=== PATIENT | male | born 1965 | race Asian ===

== ENCOUNTER 2020-06-18 12:14 | Emergency (ER) | payer SELFPAY ==
[~2020-06-18] VITALS: Ht 172.7 cm; Wt 77.1 kg
[2020-06-18 12:28] VITALS: BP 117/88
== END 2020-06-18 16:24 | disposition home or self-care (01) ==
LOC: ER 12:14
DX: J18.9 Pneumonia, unspecified organism (principal); Z20.828 Contact with and (suspected) exposure to other viral communicable diseases
CPT/HCPCS: 36415; 71045; 87426

== ENCOUNTER 2020-06-20 18:31 | Emergency (ER) | payer SELFPAY ==
[~2020-06-20] VITALS: Ht 172.7 cm; Wt 77.1 kg
[2020-06-20 18:32] VITALS: BP 164/113
== END 2020-06-20 23:00 | disposition home or self-care (01) ==
LOC: ER 18:32
DX: R06.02 Shortness of breath (principal); Z20.828 Contact with and (suspected) exposure to other viral communicable diseases
CPT/HCPCS: 36415; 71045; 87426

== ENCOUNTER 2021-04-10 20:33 | Emergency (ER) | payer MEDICAID, OTHER ==
[~2021-04-10] VITALS: Ht 175.3 cm; Wt 78.5 kg
[2021-04-10 20:37] VITALS: BP 145/118
[2021-04-10 21:42] LABS: Basophils # (auto) 0.1 10 ^3/uL (0-0.2); Basophils % (auto) 0.7 % (0.0-2.0); Eosinophils # (auto) 0.2 10 ^3/uL (0-0.8); Eosinophils % (auto) 2.5 % (0.0-7.0); Hemoglobin 18.6 g/dL (13.5-17.5); Lymphocytes % (auto) 23.3 % (10.0-50.0); Mean Corpuscular Hemoglobin 32.2 pg (28.0-32.0); Mean Corpuscular Hgb Conc. 33.1 g/dL (32.0-36.0); Mean Corpuscular Volume 97.5 fL (80.0-100.0); Monocytes # (auto) 0.7 10 ^3/uL (0-1.3); Monocytes % (auto) 7.9 % (0.0-12.0); Neutrophils # (auto) 5.7 10 ^3/uL (1.6-8.6); Neutrophils % (auto) 65.6 % (37.0-80.0); Nucleated Red Blood Cells % 0.1 %; Red Blood Cells 5.76 10^6/uL (4.5-5.90); Red Cell Distribution Width 14.1 % (11.8-14.3); White Blood Cell 8.7 10^3/uL (4.4-10.8)
[2021-04-10 21:44] LABS: Hematocrit 56.2 % (41.0-53.0)
[2021-04-10 22:27] LABS: Alanine Aminotransferase 186 U/L (16-61); Albumin 3.8 g/dL (3.4-5.0); Anion Gap 10 (5-15); Aspartate Aminotransferase 96 U/L (15-37); Blood Urea Nitrogen 20 mg/dL (7-18); Calcium 8.7 mg/dL (8.5-10.1); Carbon Dioxide 25 mmol/L (21-32); Chloride 106 mmol/L (98-107); GFR African American 78 mL/min; GFR Non-African American 64 mL/min; Glucose 95 mg/dL (74-106); Potassium 4.5 mmol/L (3.5-5.1); Sodium 141 mmol/L (136-145)
[2021-04-10 22:32] LABS: Alkaline Phosphatase 100 U/L (45-117); Bilirubin, Total 0.7 mg/dL (0.2-1.0); Total Protein 7.1 g/dL (6.4-8.2)
[2021-04-10] MEDS ORDERED: IOHEXOL 350 MG/ML 100ML IJ ONE (22:41)
== END 2021-04-11 02:31 | disposition left against medical advice (07) ==
LOC: ER 20:33
DX: R06.02 Shortness of breath (principal); I16.0 Hypertensive urgency; I11.0 Hypertensive heart disease with heart failure; I50.9 Heart failure, unspecified; Z87.891 Personal history of nicotine dependence
CPT/HCPCS: 36415; 71046; 71275; 80053; 83880; 84484; 85025; 85379; 93005; 99285; Q9967

== ENCOUNTER 2021-04-12 05:10 | Inpatient (IN) | payer MEDICAID ==
[~2021-04-12] VITALS: Ht 172.7 cm; Wt 78.5 kg
[2021-04-12 06:02] LABS: Basophils # (auto) 0.1 10 ^3/uL (0-0.2); Eosinophils # (auto) 0.2 10 ^3/uL (0-0.8); Mean Corpuscular Hgb Conc. 33.7 g/dL (32.0-36.0); Monocytes # (auto) 0.7 10 ^3/uL (0-1.3); White Blood Cell 9.1 10^3/uL (4.4-10.8)
[2021-04-12 06:03] LABS: Eosinophils % (auto) 2.5 % (0.0-7.0); Hematocrit 53.2 % (41.0-53.0); Hemoglobin 17.9 g/dL (13.5-17.5); Lymphocytes # (auto) 2.9 10 ^3/uL (0.4-5.4); Lymphocytes % (auto) 31.8 % (10.0-50.0); Mean Corpuscular Hemoglobin 32.2 pg (28.0-32.0); Mean Corpuscular Volume 95.6 fL (80.0-100.0); Neutrophils # (auto) 5.2 10 ^3/uL (1.6-8.6); Neutrophils % (auto) 56.7 % (37.0-80.0); Nucleated Red Blood Cells % 0.2 %; Red Blood Cells 5.57 10^6/uL (4.5-5.90); Red Cell Distribution Width 13.5 % (11.8-14.3)
[2021-04-12 06:17] LABS: INR 1.29 (0.9-1.15); Partial Thromboplastin Time 27.2 sec (23.6-33.0)
[2021-04-12 06:21] LABS: Alanine Aminotransferase 216 U/L (16-61); Albumin 3.8 g/dL (3.4-5.0); Anion Gap 6 (5-15); Aspartate Aminotransferase 90 U/L (15-37); BUN/Creatinine Ratio 15.4; Blood Urea Nitrogen 20 mg/dL (7-18); Calcium 8.6 mg/dL (8.5-10.1); Carbon Dioxide 25 mmol/L (21-32); Chloride 106 mmol/L (98-107); GFR African American 74 mL/min; GFR Non-African American 61 mL/min; Glucose 99 mg/dL (74-106); Lipase 337 U/L (73-393); Magnesium 2.4 mg/dL (1.6-2.6); Potassium 3.5 mmol/L (3.5-5.1); Sodium 137 mmol/L (136-145)
[2021-04-12 06:26] LABS: Alkaline Phosphatase 80 U/L (45-117); Total Protein 6.8 g/dL (6.4-8.2)
[2021-04-12] MEDS ORDERED: MORPHINE SULFATE 4 MG/ML SYR/VIAL IV PRN (12:30)
[2021-04-12] MEDS ORDERED: ONDANSETRON HCL 4 MG/2 ML VIAL IV PRN (12:30)
[2021-04-12] MEDS ORDERED: MORPHINE SULFATE INJECTION 2 MG/ML SYRG IV PRN ×2 (12:30)
[2021-04-12] MEDS ORDERED: NITROGLYCERIN 0.4 MG SL TAB SL PRN (12:30)
[2021-04-12] MEDS ORDERED: GASTROGRAFIN 30 ML SOL ONE (12:40)
[2021-04-12] MEDS ORDERED: OMNIPAQUE ORAL SOLN 500ml 12mg/ml PO ONE (12:41)
[2021-04-12 13:09] VITALS: BP 129/98
[2021-04-12] MEDS ORDERED: FUROSEMIDE 20 MG/2 ML VIAL IV SCH (18:00)
[2021-04-12] MEDS ORDERED: POTASSIUM CHL 10 Meq TABLET PO SCH (22:00)
== END 2021-04-12 13:30 | disposition left against medical advice (07) ==
LOC: ER 05:10 → TELE 12:29
PROVIDERS: ADMIT Hospitalist; ATTEND Hospitalist
DX: K81.9 Cholecystitis, unspecified (principal); I11.0 Hypertensive heart disease with heart failure; I50.9 Heart failure, unspecified; R16.0 Hepatomegaly, not elsewhere classified; R06.02 Shortness of breath; K82.9 Disease of gallbladder, unspecified; Z82.49 Family history of ischemic heart disease and other diseases of the circulatory system; Z87.891 Personal history of nicotine dependence
CPT/HCPCS: 36415; 71046; 76705; 80053; 83690; 83735; 83880; 84484; 85025; 85379; 85610; 85730; 93005; G0378

== ENCOUNTER 2021-04-14 00:13 | Emergency (ER) | payer MEDICAID ==
[~2021-04-14] VITALS: Ht 175.3 cm; Wt 77.1 kg
[2021-04-14 00:14] VITALS: BP 148/118
== END 2021-04-14 01:43 | disposition left against medical advice (07) ==
LOC: ER 00:13
DX: R06.02 Shortness of breath (principal); N32.89 Other specified disorders of bladder; I11.0 Hypertensive heart disease with heart failure; I50.9 Heart failure, unspecified; Z87.891 Personal history of nicotine dependence

== ENCOUNTER 2021-05-28 15:52 | Emergency (ER) | payer MEDICAID ==
[~2021-05-28] VITALS: Ht 172.7 cm; Wt 77.1 kg
[2021-05-28 16:34] LABS: Basophils # (auto) 0.1 10 ^3/uL (0-0.2); Eosinophils # (auto) 0.1 10 ^3/uL (0-0.8); Eosinophils % (auto) 1.2 % (0.0-7.0); Monocytes # (auto) 0.6 10 ^3/uL (0-1.3); Nucleated Red Blood Cells % 0.1 %
[2021-05-28 16:35] LABS: Basophils % (auto) 0.8 % (0.0-2.0); Hematocrit 55.4 % (41.0-53.0); Hemoglobin 18.2 g/dL (13.5-17.5); Lymphocytes # (auto) 2.1 10 ^3/uL (0.4-5.4); Lymphocytes % (auto) 22.4 % (10.0-50.0); Mean Corpuscular Hemoglobin 31.3 pg (28.0-32.0); Mean Corpuscular Hgb Conc. 32.8 g/dL (32.0-36.0); Mean Corpuscular Volume 95.4 fL (80.0-100.0); Monocytes % (auto) 6.2 % (0.0-12.0); Neutrophils # (auto) 6.5 10 ^3/uL (1.6-8.6); Neutrophils % (auto) 69.4 % (37.0-80.0); Red Blood Cells 5.81 10^6/uL (4.5-5.90); Red Cell Distribution Width 14.7 % (11.8-14.3); White Blood Cell 9.4 10^3/uL (4.4-10.8)
[2021-05-28 16:52] LABS: Albumin 3.1 g/dL (3.4-5.0); Calcium 8.4 mg/dL (8.5-10.1); Magnesium 2.8 mg/dL (1.6-2.6); Potassium 4.7 mmol/L (3.5-5.1)
[2021-05-28 17:00] LABS: BUN/Creatinine Ratio 21.2; Bilirubin, Total 1.2 mg/dL (0.2-1.0); Total Protein 6.2 g/dL (6.4-8.2)
[2021-05-28 23:05] LABS: Urine Bacteria NONE SEEN /hpf (None Seen); Urine Blood Negative /uL (Negative); Urine Mucus FEW (None Seen); Urine Sperm PRESENT /hpf (None Seen); Urine WBC 3 /hpf (0 - 3)
[2021-05-29 03:30] VITALS: BP 141/102
== END 2021-05-29 04:17 | disposition home or self-care (01) ==
LOC: ER 15:52
DX: R10.84 Generalized abdominal pain (principal); Z87.891 Personal history of nicotine dependence
CPT/HCPCS: 36415; 80053; 81001; 82150; 83690; 83735; 84484; 85025; 93005

== ENCOUNTER 2021-05-30 13:38 | Emergency (ER) | payer MEDICAID ==
[~2021-05-30] VITALS: Ht 172.7 cm; Wt 77.1 kg
[2021-05-30 14:31] LABS: Eosinophils # (auto) 0.1 10 ^3/uL (0-0.8); Eosinophils % (auto) 1.6 % (0.0-7.0); Lymphocytes # (auto) 1.7 10 ^3/uL (0.4-5.4); Monocytes # (auto) 0.4 10 ^3/uL (0-1.3); White Blood Cell 7.5 10^3/uL (4.4-10.8)
[2021-05-30 14:33] LABS: Basophils # (auto) 0.1 10 ^3/uL (0-0.2); Basophils % (auto) 0.8 % (0.0-2.0); Hemoglobin 18.8 g/dL (13.5-17.5); Lymphocytes % (auto) 23.3 % (10.0-50.0); Mean Corpuscular Hemoglobin 31.1 pg (28.0-32.0); Mean Corpuscular Hgb Conc. 32.5 g/dL (32.0-36.0); Mean Corpuscular Volume 95.8 fL (80.0-100.0); Monocytes % (auto) 5.7 % (0.0-12.0); Neutrophils # (auto) 5.1 10 ^3/uL (1.6-8.6); Neutrophils % (auto) 68.6 % (37.0-80.0); Nucleated Red Blood Cells % 0.2 %; Red Blood Cells 6.05 10^6/uL (4.5-5.90); Red Cell Distribution Width 14.8 % (11.8-14.3)
[2021-05-30 14:41] LABS: Hematocrit 57.9 % (41.0-53.0)
[2021-05-30 14:45] LABS: Albumin 3.6 g/dL (3.4-5.0); Calcium 9.2 mg/dL (8.5-10.1); Potassium 4.8 mmol/L (3.5-5.1)
[2021-05-30 14:50] LABS: BUN/Creatinine Ratio 20.5; Bilirubin, Total 1.6 mg/dL (0.2-1.0); Total Protein 6.6 g/dL (6.4-8.2)
[2021-05-30 20:15] VITALS: BP 127/84
== END 2021-05-30 17:37 | disposition home or self-care (01) ==
LOC: ER 13:38
DX: R10.10 Upper abdominal pain, unspecified (principal); I50.9 Heart failure, unspecified; K21.9 Gastro-esophageal reflux disease without esophagitis; Z87.891 Personal history of nicotine dependence
CPT/HCPCS: 36415; 74176; 80053; 83690; 85025; 93005

== ENCOUNTER 2021-06-06 13:13 | Inpatient (IN) | payer MEDICAID ==
[~2021-06-06] VITALS: Ht 165.1 cm; Wt 84.6 kg
[2021-06-06 14:15] LABS: Basophils # (auto) 0.1 10 ^3/uL (0-0.2); Eosinophils # (auto) 0.1 10 ^3/uL (0-0.8); Monocytes # (auto) 0.7 10 ^3/uL (0-1.3); Nucleated Red Blood Cells % 0.2 %
[2021-06-06 14:24] LABS: Basophils % (auto) 0.8 % (0.0-2.0); Eosinophils % (auto) 0.9 % (0.0-7.0); Hematocrit 62.7 % (41.0-53.0); Lymphocytes % (auto) 12.4 % (10.0-50.0); Mean Corpuscular Hemoglobin 30.5 pg (28.0-32.0); Mean Corpuscular Volume 95.2 fL (80.0-100.0); Monocytes % (auto) 8.2 % (0.0-12.0); Neutrophils # (auto) 6.4 10 ^3/uL (1.6-8.6); Neutrophils % (auto) 77.7 % (37.0-80.0); Red Blood Cells 6.58 10^6/uL (4.5-5.90); Red Cell Distribution Width 14.7 % (11.8-14.3); White Blood Cell 8.2 10^3/uL (4.4-10.8)
[2021-06-06 14:36] LABS: Albumin 3.7 g/dL (3.4-5.0); BUN/Creatinine Ratio 18.1; Calcium 9.3 mg/dL (8.5-10.1); Potassium 4.3 mmol/L (3.5-5.1)
[2021-06-06 14:41] LABS: Bilirubin, Total 2.8 mg/dL (0.2-1.0); Total Protein 7.1 g/dL (6.4-8.2)
[2021-06-06] MEDS ORDERED: NITROGLYCERIN 0.4 MG SL TAB SL PRN ×2 (17:30→18:45)
[2021-06-06] MEDS ORDERED: MORPHINE SULFATE INJECTION 2 MG/ML SYRG IV PRN ×3 (17:30→18:45)
[2021-06-06] MEDS ORDERED: ENOXAPARIN SOD 80 MG/0.8ML SYRINGE SC ONE (17:30)
[2021-06-06] MEDS ORDERED: LACTATED RINGER'S 1,000 ML IV ONE (17:30)
[2021-06-06] MEDS ORDERED: LACTATED RINGER'S 500 ML IV ONE (18:15)
[2021-06-06] MEDS ORDERED: FAMOTIDINE (10MG/ML) 2ML VL IV ONE (18:45)
[2021-06-06] MEDS ORDERED: ASPirin 81 mg TAB PO ONE (18:45)
[2021-06-06] MEDS ORDERED: cefTRIAXone 1GM/50ML D5W 50 ML IV ONE (18:45)
[2021-06-06] MEDS ORDERED: ALUM & MAG HYDROX-SIMETH LIQ(MAALOX) 30 ML PO PRN (18:45)
[2021-06-06] MEDS ORDERED: LORazepam 0.5 MG TAB PO PRN (18:45)
[2021-06-06] MEDS ORDERED: ACETAMINOPHEN 325 MG TAB PO PRN (18:45)
[2021-06-06] MEDS ORDERED: AZITHROMYCIN 500MG/ 250ML 250 ML IV ONE (18:45)
[2021-06-06] MEDS ORDERED: METOCLOPRAMIDE HCL 5MG/ml INJ 2ml VIAL IV PRN (18:45)
[2021-06-06] MEDS ORDERED: ATORVASTATIN 20 MG TAB PO ONE (18:45)
[2021-06-06] MEDS ORDERED: METOPROLOL SUCCINATE XL 50 MG TAB PO ONE (18:45)
[2021-06-06] MEDS ORDERED: HYDROcodone-ACET 5/325MG TAB PO PRN (18:45)
[2021-06-06] MEDS: FUROSEMIDE 40 MG/4 ML VIAL IV SCH (19:00)
[2021-06-06] MEDS ORDERED: ENOXAPARIN SOD 40 MG/0.4 ML SYRINGE SC SCH (22:00)
[2021-06-06] MEDS ORDERED: ATORVASTATIN 20 MG TAB PO SCH (22:00)
[2021-06-06] MEDS ORDERED: FAMOTIDINE (10MG/ML) 2ML VL IV SCH (22:00)
[2021-06-06] MEDS ORDERED: FURO1TAB33 PO (23:25)
[2021-06-06] MEDS ORDERED: OMEP-434 PO (23:25)
[2021-06-06] MEDS ORDERED: TAM04C PO (23:26)
[2021-06-06] MEDS ORDERED: POTA10TA51 PO (23:26)
[2021-06-07] VITALS (7 sets, daily range): BP systolic 99–108; BP diastolic 58–85
[2021-06-07] MEDS: FUROSEMIDE 40 MG/4 ML VIAL IV SCH (06:10)
[2021-06-07 06:44] LABS: BUN/Creatinine Ratio 19.5; Bilirubin, Total 2.2 mg/dL (0.2-1.0); Calcium 8.3 mg/dL (8.5-10.1); Magnesium 2.7 mg/dL (1.6-2.6); Phosphorus 4.9 mg/dL (2.5-4.90); Uric Acid 12.7 mg/dL (3.5-7.2)
[2021-06-07] MEDS: cefTRIAXone 1GM/50ML D5W 50 ML IV SCH (08:54)
[2021-06-07] MEDS: ASPirin 81 mg TAB PO SCH (08:55)
[2021-06-07] MEDS: ENOXAPARIN SOD 40 MG/0.4 ML SYRINGE SC SCH (09:00)
[2021-06-07 09:25] LABS: Urine Bacteria NONE SEEN /hpf (None Seen); Urine Blood Negative /uL (Negative); Urine Hyaline Cast FEW /lpf (0 - 2); Urine Mucus FEW (None Seen); Urine Specific Gravity 1.006 (1.001-1.035); Urine WBC <1 /hpf (0 - 3)
[2021-06-07 09:44] LABS: Alcohol, Urine < 3.0 mg/dL (0-10); Amphetamine Screen, Urine NEGATIVE (NEGATIVE); Barbiturate Scree,Urine NEGATIVE (NEGATIVE); Benzodiazephine Screen, Urine NEGATIVE (NEGATIVE); Cannabinoid Screen, Urine NEGATIVE (NEGATIVE); Cocaine Screen, Urine NEGATIVE (NEGATIVE); Opiate Scree,Urine NEGATIVE (NEGATIVE); Phencyclidine Screen, Urine NEGATIVE (NEGATIVE)
[2021-06-07] MEDS ORDERED: METOPROLOL SUCCINATE XL 50 MG TAB PO SCH (10:00)
[2021-06-07] MEDS: AZITHROMYCIN 500MG/ 250ML 250 ML IV SCH (10:00)
[2021-06-07] MEDS ORDERED: LISINOPRIL 5 MG TAB PO SCH (10:00)
[2021-06-07] MEDS ORDERED: FAMOTIDINE (10MG/ML) 2ML VL IV SCH (10:00)
[2021-06-07] MEDS: PANTOPRAZOLE 40 MG TAB PO SCH (12:45)
[2021-06-07 16:10] LABS: INR 2.05 (0.9-1.15)
[2021-06-07] MEDS ORDERED: PHYTONADIONE (VIT K)10 MG/ML 1ML VIAL SUBCUT ONE (17:45)
[2021-06-07] MEDS: FUROSEMIDE 20 MG/2 ML VIAL IV SCH (18:00)
[2021-06-07] MEDS: ATORVASTATIN 20 MG TAB PO SCH (21:29)
[2021-06-07] MEDS ORDERED: METOPROLOL TARTRATE 25 MG TAB PO SCH (22:00)
[2021-06-08] VITALS (8 sets, daily range): BP systolic 89–115; BP diastolic 53–86
[2021-06-08] MEDS: FUROSEMIDE 20 MG/2 ML VIAL IV SCH ×2 (06:13→18:00)
[2021-06-08 07:14] LABS: Basophils # (auto) 0 10 ^3/uL (0-0.2); Basophils % (auto) 0.5 % (0.0-2.0); Eosinophils # (auto) 0 10 ^3/uL (0-0.8); Eosinophils % (auto) 0.2 % (0.0-7.0); Hematocrit 52.8 % (41.0-53.0); Hemoglobin 17.4 g/dL (13.5-17.5); Lymphocytes # (auto) 1.1 10 ^3/uL (0.4-5.4); Lymphocytes % (auto) 17.6 % (10.0-50.0); Mean Corpuscular Hgb Conc. 32.9 g/dL (32.0-36.0); Mean Corpuscular Volume 94.1 fL (80.0-100.0); Monocytes # (auto) 0.6 10 ^3/uL (0-1.3); Monocytes % (auto) 10.2 % (0.0-12.0); Neutrophils # (auto) 4.5 10 ^3/uL (1.6-8.6); Neutrophils % (auto) 71.5 % (37.0-80.0); Nucleated Red Blood Cells % 0.3 %; Red Blood Cells 5.61 10^6/uL (4.5-5.90); Red Cell Distribution Width 14.3 % (11.8-14.3); White Blood Cell 6.3 10^3/uL (4.4-10.8)
[2021-06-08 07:29] LABS: Potassium 3.9 mmol/L (3.5-5.1)
[2021-06-08 07:40] LABS: Albumin 3.1 g/dL (3.4-5.0); BUN/Creatinine Ratio 22.1; Bilirubin, Direct 0.7 mg/dL (0-0.2); Bilirubin, Total 1.5 mg/dL (0.2-1.0); Calcium 8.6 mg/dL (8.5-10.1); Total Protein 5.8 g/dL (6.4-8.2)
[2021-06-08] MEDS: cefTRIAXone 1GM/50ML D5W 50 ML IV SCH ×2 (09:00→10:28)
[2021-06-08] MEDS: ENOXAPARIN SOD 40 MG/0.4 ML SYRINGE SC SCH (10:00)
[2021-06-08] MEDS: ASPirin 81 mg TAB PO SCH (10:00)
[2021-06-08] MEDS: PANTOPRAZOLE 40 MG TAB PO SCH (10:00)
[2021-06-08] MEDS: AZITHROMYCIN 500MG/ 250ML 250 ML IV SCH (10:27)
[2021-06-08] MEDS ORDERED: MISC-412 XX (14:53)
[2021-06-08] MEDS ORDERED: ASPI1CHW15 PO (14:53)
[2021-06-08] MEDS ORDERED: POTA10TA51 PO (14:53)
[2021-06-08] MEDS ORDERED: METO-6 PO (14:53)
[2021-06-08] MEDS ORDERED: TAM04C PO (14:53)
[2021-06-08] MEDS ORDERED: OMEP-434 PO (14:53)
[2021-06-08] MEDS ORDERED: FURO1TAB33 PO (14:53)
[2021-06-08] MEDS: ATORVASTATIN 20 MG TAB PO SCH (20:45)
[2021-06-09 05:00] VITALS: BP 91/54
[2021-06-09] MEDS: FUROSEMIDE 20 MG/2 ML VIAL IV SCH (06:00)
[2021-06-09 08:30] VITALS: BP 90/57
[2021-06-09] MEDS: cefTRIAXone 1GM/50ML D5W 50 ML IV SCH (08:58)
[2021-06-09 09:00] VITALS: BP 96/73
[2021-06-09 09:27] LABS: Calcium 8.6 mg/dL (8.5-10.1); Potassium 3.9 mmol/L (3.5-5.1)
[2021-06-09 09:28] LABS: Basophils # (auto) 0.1 10 ^3/uL (0-0.2); Basophils % (auto) 0.8 % (0.0-2.0); Eosinophils # (auto) 0.1 10 ^3/uL (0-0.8); Eosinophils % (auto) 0.9 % (0.0-7.0); Lymphocytes # (auto) 1.5 10 ^3/uL (0.4-5.4); Lymphocytes % (auto) 18.7 % (10.0-50.0); Mean Corpuscular Hemoglobin 30.3 pg (28.0-32.0); Mean Corpuscular Hgb Conc. 32.1 g/dL (32.0-36.0); Mean Corpuscular Volume 94.4 fL (80.0-100.0); Monocytes # (auto) 0.5 10 ^3/uL (0-1.3); Monocytes % (auto) 6.9 % (0.0-12.0); Neutrophils # (auto) 5.8 10 ^3/uL (1.6-8.6); Neutrophils % (auto) 72.7 % (37.0-80.0); Nucleated Red Blood Cells % 0.2 %; Red Blood Cells 5.62 10^6/uL (4.5-5.90); Red Cell Distribution Width 14.6 % (11.8-14.3)
[2021-06-09 09:29] LABS: BUN/Creatinine Ratio 26.9
[2021-06-09] MEDS ORDERED: METOPROLOL SUCCINATE XL 50 MG TAB PO SCH (10:00)
[2021-06-09] MEDS: ASPirin 81 mg TAB PO SCH (10:00)
[2021-06-09] MEDS: PANTOPRAZOLE 40 MG TAB PO SCH (10:00)
[2021-06-09] MEDS: ENOXAPARIN SOD 40 MG/0.4 ML SYRINGE SC SCH (10:00)
[2021-06-09] MEDS: AZITHROMYCIN 500MG/ 250ML 250 ML IV SCH (10:00)
== END 2021-06-09 10:31 | disposition home or self-care (01) | DRG 194 ==
LOC: ER 13:13 → TELE 17:19 → TELE-WESTW 20:25
PROVIDERS: ADMIT Hospitalist; ATTEND Internal Medicine
PROC: 0W993ZZ Drainage of Right Pleural Cavity, Percutaneous Approach (ICD-10-PCS; principal; 2021-06-07)
PROC: 30233K1 Transfusion of Nonautologous Frozen Plasma into Peripheral Vein, Percutaneous Approach (ICD-10-PCS; 2021-06-07)
DX: I13.0 Hypertensive heart and chronic kidney disease with heart failure and stage 1 through stage 4 chronic kidney disease, or unspecified chronic kidney disease (principal); N17.9 Acute kidney failure, unspecified; D69.6 Thrombocytopenia, unspecified; I42.9 Cardiomyopathy, unspecified; J90 Pleural effusion, not elsewhere classified; E88.09 Other disorders of plasma-protein metabolism, not elsewhere classified; I50.23 Acute on chronic systolic (congestive) heart failure; I50.82 Biventricular heart failure; D75.1 Secondary polycythemia; F10.10 Alcohol abuse, uncomplicated; F17.200 Nicotine dependence, unspecified, uncomplicated; J98.11 Atelectasis; Z20.822 Contact with and (suspected) exposure to COVID-19; K80.20 Calculus of gallbladder without cholecystitis without obstruction; K21.9 Gastro-esophageal reflux disease without esophagitis; Z80.0 Family history of malignant neoplasm of digestive organs; Z82.49 Family history of ischemic heart disease and other diseases of the circulatory system; Z87.01 Personal history of pneumonia (recurrent); Z91.14 Patient's other noncompliance with medication regimen; J44.9 Chronic obstructive pulmonary disease, unspecified; N18.2 Chronic kidney disease, stage 2 (mild)
CPT/HCPCS: 32555; 36415; 71045; 71046; 71250; 76705; 76775; 78226; 80048; 80053; 80061; 80076; 80307; 80320; 81001; 82306; 83036; 83735; 83880; 83986; 84100; 84443; 84484; 84550; 85025; 85610; 85730; 86160; 86850; 86900; 86901; 87040; 87086; 87205; 87426; 89051; 93005; 93306; 93970; 96361; 96365; 96372; 96375; G0378; J0696; J3430; J3490

== ENCOUNTER 2021-09-26 05:07 | Inpatient (IN) | payer MEDICAID ==
[~2021-09-26] VITALS: Ht 172.7 cm; Wt 78.7 kg
[~2021-09-26 05:07] MED LIST: ASPI1CHW15 PO; FURO1TAB33 PO; METO-6 PO; MISC-412 XX; OMEP-434 PO; POTA10TA51 PO; TAM04C PO
[2021-09-26 06:45] LABS: Basophils # (auto) 0 10 ^3/uL (0-0.2); Basophils % (auto) 0.7 % (0.0-2.0); Eosinophils # (auto) 0.1 10 ^3/uL (0-0.8); Eosinophils % (auto) 1.5 % (0.0-7.0); Hematocrit 49.1 % (41.0-53.0); Hemoglobin 16.6 g/dL (13.5-17.5); Lymphocytes # (auto) 1.8 10 ^3/uL (0.4-5.4); Lymphocytes % (auto) 32.9 % (10.0-50.0); Mean Corpuscular Hemoglobin 32.2 pg (28.0-32.0); Mean Corpuscular Hgb Conc. 33.9 g/dL (32.0-36.0); Mean Corpuscular Volume 95.1 fL (80.0-100.0); Monocytes # (auto) 0.4 10 ^3/uL (0-1.3); Neutrophils # (auto) 3.2 10 ^3/uL (1.6-8.6); Neutrophils % (auto) 57.9 % (37.0-80.0); Nucleated Red Blood Cells % 0.1 %; Red Blood Cells 5.16 10^6/uL (4.5-5.90); Red Cell Distribution Width 17.3 % (11.8-14.3); White Blood Cell 5.5 10^3/uL (4.4-10.8)
[2021-09-26] MEDS ORDERED: FUROSEMIDE 40 MG/4 ML VIAL IV ONE (07:00)
[2021-09-26 07:03] LABS: INR 1.44 (0.9-1.15); Partial Thromboplastin Time 29.6 sec (23.6-33.0)
[2021-09-26 07:13] LABS: Albumin 3.2 g/dL (3.4-5.0); Calcium 8.2 mg/dL (8.5-10.1)
[2021-09-26 07:19] LABS: BUN/Creatinine Ratio 28.1; Bilirubin, Total 1.6 mg/dL (0.2-1.0)
[2021-09-26] MEDS ORDERED: MORPHINE SULFATE INJECTION 2 MG/ML SYRG IV PRN (10:15)
[2021-09-26] MEDS ORDERED: MORPHINE SULFATE 4 MG/ML SYR/VIAL IV PRN (10:15)
[2021-09-26] MEDS ORDERED: ACETAMINOPHEN 325 MG TAB PO PRN (10:15)
[2021-09-26] MEDS ORDERED: ONDANSETRON HCL 4 MG/2 ML VIAL IV PRN (10:15)
[2021-09-26] MEDS ORDERED: NITROGLYCERIN 0.4 MG SL TAB SL PRN (10:15)
[2021-09-26] MEDS ORDERED: HYDROcodone-ACET 5/325MG TAB PO PRN (10:15)
[2021-09-26] MEDS: DOXYCYCLINE 100MG/250ML 250 ML IV SCH ×2 (10:58→21:20)
[2021-09-26 12:50] VITALS: BP 115/91
[2021-09-26 14:28] VITALS: BP 115/91
[2021-09-26] MEDS ORDERED: CARV3.1240 PO (15:07)
[2021-09-26 17:00] VITALS: BP 101/74
[2021-09-26] MEDS: FUROSEMIDE 40 MG/4 ML VIAL IV SCH (18:11)
[2021-09-26 22:00] VITALS: BP 104/79
[2021-09-27 05:00] VITALS: BP 106/80
[2021-09-27 05:52] LABS: Basophils # (auto) 0 10 ^3/uL (0-0.2); Basophils % (auto) 0.5 % (0.0-2.0); Eosinophils # (auto) 0.1 10 ^3/uL (0-0.8); Eosinophils % (auto) 2.6 % (0.0-7.0); Hematocrit 48.2 % (41.0-53.0); Hemoglobin 16.2 g/dL (13.5-17.5); Lymphocytes # (auto) 1.5 10 ^3/uL (0.4-5.4); Lymphocytes % (auto) 32.5 % (10.0-50.0); Mean Corpuscular Hemoglobin 31.7 pg (28.0-32.0); Mean Corpuscular Hgb Conc. 33.6 g/dL (32.0-36.0); Mean Corpuscular Volume 94.5 fL (80.0-100.0); Monocytes # (auto) 0.3 10 ^3/uL (0-1.3); Monocytes % (auto) 6.7 % (0.0-12.0); Neutrophils # (auto) 2.7 10 ^3/uL (1.6-8.6); Neutrophils % (auto) 57.7 % (37.0-80.0); Nucleated Red Blood Cells % 0.2 %; Red Cell Distribution Width 17.3 % (11.8-14.3); White Blood Cell 4.7 10^3/uL (4.4-10.8)
[2021-09-27] MEDS: FUROSEMIDE 40 MG/4 ML VIAL IV SCH (05:59)
[2021-09-27 06:06] LABS: Calcium 8.1 mg/dL (8.5-10.1); Potassium 3.4 mmol/L (3.5-5.1)
[2021-09-27 06:12] LABS: Albumin 2.9 g/dL (3.4-5.0); BUN/Creatinine Ratio 27.9; Bilirubin, Total 1.6 mg/dL (0.2-1.0); Total Protein 6.4 g/dL (6.4-8.2)
[2021-09-27 08:00] VITALS: BP 107/67
[2021-09-27] MEDS ORDERED: LIDOCAINE 2%HCL (LOCAL ANESTH.) INJ 10ml MDV ONE (08:46)
[2021-09-27 08:53] VITALS: BP 100/80
[2021-09-27] MEDS ORDERED: PATIENTS OWN MEDICATION (Aspirin (Aspirin Low Strength) 81 MG) PO SCH (10:00)
[2021-09-27] MEDS ORDERED: OMEPRAZOLE MAGNESIUM 20 MG PO SCH (10:00)
[2021-09-27] MEDS ORDERED: ASPirin 81 mg TAB PO SCH (10:00)
[2021-09-27] MEDS ORDERED: TAMSULOSIN HYDROCHLORIDE 0.4 MG CAP PO SCH (10:00)
[2021-09-27] MEDS ORDERED: METOPROLOL SUCCINATE XL 50 MG TAB PO SCH (10:00)
[2021-09-27] MEDS ORDERED: ENOXAPARIN SOD 40 MG/0.4 ML SYRINGE SC SCH (10:00)
[2021-09-27] MEDS ORDERED: PANTOPRAZOLE 40 MG TAB PO SCH (10:00)
[2021-09-27] MEDS: DOXYCYCLINE 100MG/250ML 250 ML IV SCH (10:00)
[2021-09-27] MEDS ORDERED: CAL025T GT (10:07)
[2021-09-27] MEDS ORDERED: 1,4-CRY XX (10:07)
[2021-09-27] MEDS ORDERED: SACU1TAB PO (10:08)
[2021-09-27] MEDS ORDERED: DOXY-286 PO (10:39)
[2021-09-27 11:25] VITALS: BP 94/43
== END 2021-09-27 12:00 | disposition home or self-care (01) | DRG 194 ==
LOC: ER 05:07 → TELE 10:14 → TELE-CENTR 13:04
PROVIDERS: ADMIT Internal Medicine; ATTEND Internal Medicine
PROC: 0W993ZZ Drainage of Right Pleural Cavity, Percutaneous Approach (ICD-10-PCS; principal; 2021-09-27)
DX: I13.0 Hypertensive heart and chronic kidney disease with heart failure and stage 1 through stage 4 chronic kidney disease, or unspecified chronic kidney disease (principal); J13 Pneumonia due to Streptococcus pneumoniae; I42.0 Dilated cardiomyopathy; I50.23 Acute on chronic systolic (congestive) heart failure; N18.9 Chronic kidney disease, unspecified; F17.200 Nicotine dependence, unspecified, uncomplicated; N40.0 Benign prostatic hyperplasia without lower urinary tract symptoms; K21.9 Gastro-esophageal reflux disease without esophagitis; Z20.822 Contact with and (suspected) exposure to COVID-19; Z91.14 Patient's other noncompliance with medication regimen; Z82.49 Family history of ischemic heart disease and other diseases of the circulatory system; Z91.19 Patient's noncompliance with other medical treatment and regimen
CPT/HCPCS: 36415; 71045; 76604; 76942; 80053; 83880; 84484; 85025; 85379; 85610; 85730; 93005; 93306; 96365; 96375; 99291; G0378; J2001; J3490

== ENCOUNTER 2022-01-19 03:46 | Inpatient (IN) | payer MEDICAID ==
[~2022-01-19] VITALS: Ht 172.7 cm; Wt 70.3 kg
[~2022-01-19 03:46] MED LIST changes: -ASPI1CHW15 PO; +CARV3.1240 PO; +DOXY-286 PO; -METO-6 PO; +SACU1TAB PO
[2022-01-19 05:14] LABS: Urine Bacteria NONE SEEN /hpf (None Seen); Urine Blood Negative /uL (Negative); Urine Hyaline Cast MANY /lpf (0 - 2); Urine Mucus FEW (None Seen); Urine Specific Gravity 1.014 (1.001-1.035); Urine WBC 1 /hpf (0 - 3)
[2022-01-19 05:28] LABS: Basophils # (auto) 0.1 10 ^3/uL (0-0.2); Eosinophils # (auto) 0.1 10 ^3/uL (0-0.8); Monocytes # (auto) 0.6 10 ^3/uL (0-1.3); Neutrophils # (auto) 4.1 10 ^3/uL (1.6-8.6)
[2022-01-19 05:31] LABS: Basophils % (auto) 0.9 % (0.0-2.0); Hematocrit 52.8 % (41.0-53.0); Hemoglobin 17.5 g/dL (13.5-17.5); Lymphocytes % (auto) 28.8 % (10.0-50.0); Mean Corpuscular Hemoglobin 32.7 pg (28.0-32.0); Mean Corpuscular Hgb Conc. 33.1 g/dL (32.0-36.0); Mean Corpuscular Volume 98.7 fL (80.0-100.0); Monocytes % (auto) 8.6 % (0.0-12.0); Neutrophils % (auto) 59.7 % (37.0-80.0); Nucleated Red Blood Cells % 0.6 %; Red Blood Cells 5.35 10^6/uL (4.5-5.90); Red Cell Distribution Width 16.2 % (11.8-14.3); White Blood Cell 6.8 10^3/uL (4.4-10.8)
[2022-01-19 05:36] LABS: Calcium 9.1 mg/dL (8.5-10.1); Potassium 4.6 mmol/L (3.5-5.1)
[2022-01-19 05:46] LABS: BUN/Creatinine Ratio 16.8; Bilirubin, Total 1.5 mg/dL (0.2-1.0); Total Protein 7.7 g/dL (6.4-8.2)
[2022-01-19] MEDS ORDERED: NITROGLYCERIN 0.4 MG SL TAB SL PRN (11:30)
[2022-01-19] MEDS ORDERED: DOCUSATE SOD 100 MG CAP PO PRN (11:30)
[2022-01-19] MEDS ORDERED: ACETAMINOPHEN 325 MG TAB PO PRN (11:30)
[2022-01-19] MEDS ORDERED: MORPHINE SULFATE INJ 2 MG/ml SYRG IV PRN (11:30)
[2022-01-19] MEDS ORDERED: ONDANSETRON HCL 4 MG/2 ML VIAL IV PRN (11:30)
[2022-01-19] MEDS ORDERED: HYDROcodone-ACET 5/325MG TAB PO PRN (11:30)
[2022-01-19 12:57] LABS: INR 1.78 (0.9-1.15)
[2022-01-19] MEDS: FUROSEMIDE 40 MG/4 ML VIAL IV SCH ×2 (13:46→18:00)
[2022-01-19] MEDS ORDERED: TAMSULOSIN HYDROCHLORIDE 0.4 MG CAP PO SCH (18:00)
[2022-01-19 22:00] VITALS: BP 115/90
[2022-01-19] MEDS: POTASSIUM CHL 20 Meq TABLET PO SCH (23:11)
[2022-01-20 05:00] VITALS: BP 107/82
[2022-01-20] MEDS: FUROSEMIDE 40 MG/4 ML VIAL IV SCH (06:17)
[2022-01-20 06:32] LABS: Basophils # (auto) 0.1 10 ^3/uL (0-0.2); Eosinophils # (auto) 0.1 10 ^3/uL (0-0.8); Eosinophils % (auto) 1.4 % (0.0-7.0); Hematocrit 52.2 % (41.0-53.0); Hemoglobin 16.9 g/dL (13.5-17.5); Lymphocytes # (auto) 1.8 10 ^3/uL (0.4-5.4); Lymphocytes % (auto) 25.9 % (10.0-50.0); Mean Corpuscular Hemoglobin 31.6 pg (28.0-32.0); Mean Corpuscular Hgb Conc. 32.5 g/dL (32.0-36.0); Mean Corpuscular Volume 97.2 fL (80.0-100.0); Monocytes # (auto) 0.6 10 ^3/uL (0-1.3); Monocytes % (auto) 8.7 % (0.0-12.0); Neutrophils # (auto) 4.4 10 ^3/uL (1.6-8.6); Nucleated Red Blood Cells % 0.3 %; Red Blood Cells 5.36 10^6/uL (4.5-5.90); Red Cell Distribution Width 15.8 % (11.8-14.3)
[2022-01-20 06:34] LABS: Potassium 4.4 mmol/L (3.5-5.1)
[2022-01-20 06:40] LABS: BUN/Creatinine Ratio 20.3; Calcium 8.6 mg/dL (8.5-10.1)
[2022-01-20] MEDS: POTASSIUM CHL 20 Meq TABLET PO SCH (09:57)
[2022-01-20 12:30] VITALS: BP 104/80
[2022-01-20 15:11] VITALS: BP 108/78
[2022-01-20 16:00] VITALS: BP 103/80
== END 2022-01-20 18:20 | disposition home or self-care (01) | DRG 194 ==
LOC: ER 03:46 → TELE 14:46 → TELE-WESTW 19:57
PROVIDERS: ADMIT Internal Medicine; ATTEND Internal Medicine
PROC: 0W993ZZ Drainage of Right Pleural Cavity, Percutaneous Approach (ICD-10-PCS; principal; 2022-01-19)
DX: I13.0 Hypertensive heart and chronic kidney disease with heart failure and stage 1 through stage 4 chronic kidney disease, or unspecified chronic kidney disease (principal); J91.8 Pleural effusion in other conditions classified elsewhere; N17.9 Acute kidney failure, unspecified; I42.0 Dilated cardiomyopathy; Z20.822 Contact with and (suspected) exposure to COVID-19; I50.23 Acute on chronic systolic (congestive) heart failure; J44.9 Chronic obstructive pulmonary disease, unspecified; J98.11 Atelectasis; K21.9 Gastro-esophageal reflux disease without esophagitis; N18.2 Chronic kidney disease, stage 2 (mild); Z82.49 Family history of ischemic heart disease and other diseases of the circulatory system; Z87.891 Personal history of nicotine dependence; Z91.14 Patient's other noncompliance with medication regimen
CPT/HCPCS: 36415; 71045; 76604; 76942; 80048; 80053; 81001; 83880; 83986; 84484; 85025; 85610; 85730; 87205; 89051; 93005; G0378

== ENCOUNTER 2022-10-19 16:03 | Emergency (ER) | payer MEDICAID ==
[~2022-10-19] VITALS: Ht 175.3 cm; Wt 80.9 kg
[~2022-10-19 16:03] MED LIST changes: -DOXY-286 PO
[2022-10-19 16:15] VITALS: BP 115/89
[2022-10-19 17:00] LABS: Basophils # (auto) 0.1 10 ^3/uL (0-0.2); Basophils % (auto) 0.8 % (0.0-2.0); Eosinophils # (auto) 0.3 10 ^3/uL (0-0.8); Hemoglobin 18.1 g/dL (13.5-17.5); Lymphocytes # (auto) 1.9 10 ^3/uL (0.4-5.4); Monocytes # (auto) 0.7 10 ^3/uL (0-1.3); White Blood Cell 8.5 10^3/uL (4.4-10.8)
[2022-10-19 17:02] LABS: Eosinophils % (auto) 3.7 % (0.0-7.0); Hematocrit 53.9 % (41.0-53.0); Lymphocytes % (auto) 22.5 % (10.0-50.0); Mean Corpuscular Hemoglobin 34.2 pg (28.0-32.0); Mean Corpuscular Hgb Conc. 33.6 g/dL (32.0-36.0); Mean Corpuscular Volume 101.8 fL (80.0-100.0); Monocytes % (auto) 8.8 % (0.0-12.0); Neutrophils # (auto) 5.4 10 ^3/uL (1.6-8.6); Neutrophils % (auto) 64.2 % (37.0-80.0); Nucleated Red Blood Cells % 0.2 %
[2022-10-19 17:13] LABS: Albumin 3.5 g/dL (3.4-5.0); BUN/Creatinine Ratio 14.1 (10.0-20.0); Calcium 8.7 mg/dL (8.5-10.1); Potassium 4.3 mmol/L (3.5-5.1)
[2022-10-19 17:16] LABS: Bilirubin, Total 1.8 mg/dL (0.2-1.0); Total Protein 7.1 g/dL (6.4-8.2)
== END 2022-10-19 20:40 | disposition left against medical advice (07) ==
LOC: ER 16:03
DX: D75.1 Secondary polycythemia (principal); J90 Pleural effusion, not elsewhere classified; I11.0 Hypertensive heart disease with heart failure; I50.9 Heart failure, unspecified; K21.9 Gastro-esophageal reflux disease without esophagitis; Z87.891 Personal history of nicotine dependence
CPT/HCPCS: 36415; 71250; 74176; 80053; 82150; 83690; 83735; 84484; 85025; 93005

== ENCOUNTER 2022-10-25 08:12 | Inpatient (IN) | payer MEDICAID ==
[~2022-10-25] VITALS: Ht 170.2 cm; Wt 83.0 kg
[2022-10-25 09:28] LABS: Eosinophils # (auto) 0.2 10 ^3/uL (0-0.8); Hemoglobin 18.6 g/dL (13.5-17.5); Mean Corpuscular Hemoglobin 33.7 pg (28.0-32.0); Monocytes # (auto) 0.8 10 ^3/uL (0-1.3); Neutrophils # (auto) 6.2 10 ^3/uL (1.6-8.6)
[2022-10-25 09:30] LABS: Basophils # (auto) 0.1 10 ^3/uL (0-0.2); Basophils % (auto) 1.3 % (0.0-2.0); Eosinophils % (auto) 2.4 % (0.0-7.0); Hematocrit 55.9 % (41.0-53.0); Lymphocytes # (auto) 2.4 10 ^3/uL (0.4-5.4); Lymphocytes % (auto) 24.7 % (10.0-50.0); Mean Corpuscular Hgb Conc. 33.2 g/dL (32.0-36.0); Mean Corpuscular Volume 101.3 fL (80.0-100.0); Monocytes % (auto) 8.6 % (0.0-12.0); Nucleated Red Blood Cells % 0.2 %; Red Blood Cells 5.52 10^6/uL (4.5-5.90); Red Cell Distribution Width 14.5 % (11.8-14.3); White Blood Cell 9.8 10^3/uL (4.4-10.8)
[2022-10-25 09:33] LABS: Potassium 4.3 mmol/L (3.5-5.1)
[2022-10-25 09:42] LABS: Albumin 3.5 g/dL (3.4-5.0); Bilirubin, Total 1.1 mg/dL (0.2-1.0); Calcium 9.5 mg/dL (8.5-10.1); Total Protein 7.2 g/dL (6.4-8.2)
[2022-10-25 10:11] LABS: INR 1.46 (0.9-1.15); Partial Thromboplastin Time 29.3 sec (24.6-33.4)
[2022-10-25] MEDS ORDERED: FUROSEMIDE 40 MG/4 ML VIAL IV ONE (11:30)
[2022-10-25] MEDS ORDERED: MORPHINE SULFATE INJ 2 MG/ml SYRG IV PRN ×2 (13:15)
[2022-10-25] MEDS ORDERED: ONDANSETRON HCL 4 MG/2 ML VIAL IV PRN (13:15)
[2022-10-25] MEDS ORDERED: ACETAMINOPHEN 325 MG TAB PO PRN (13:15)
[2022-10-25] MEDS ORDERED: HYDROcodone-ACET 5/325MG TAB PO PRN (13:15)
[2022-10-25] MEDS ORDERED: NITROGLYCERIN 0.4 MG SL TAB SL PRN (13:15)
[2022-10-25] MEDS ORDERED: metOLazone 5 MG TAB PO ONE (15:00)
[2022-10-25] MEDS: FUROSEMIDE 40 MG/4 ML VIAL IV SCH (18:00)
[2022-10-25 18:31] LABS: Urine Bacteria NONE SEEN /hpf (None Seen); Urine Blood Negative /uL (Negative); Urine Hyaline Cast FEW /lpf (0 - 2); Urine Specific Gravity 1.007 (1.001-1.035); Urine WBC <1 /hpf (0 - 3)
[2022-10-25] MEDS: CARVEDILOL 3.125 MG TAB PO SCH (22:00)
[2022-10-26 04:35] VITALS: BP 120/89
[2022-10-26] MEDS: FUROSEMIDE 40 MG/4 ML VIAL IV SCH (06:06)
[2022-10-26 09:00] VITALS: BP 104/80
[2022-10-26] MEDS: CARVEDILOL 3.125 MG TAB PO SCH (09:35)
[2022-10-26] MEDS ORDERED: POTASSIUM CHL 10 Meq TABLET PO SCH (10:00)
[2022-10-26] MEDS ORDERED: PANTOPRAZOLE 40 MG TAB PO SCH (10:00)
[2022-10-26] MEDS ORDERED: TAMSULOSIN HYDROCHLORIDE 0.4 MG CAP PO SCH (10:00)
[2022-10-26] MEDS ORDERED: SACUBITRIL-VALSARTAN 24mg/26mg TAB PO SCH (10:00)
[2022-10-26 13:00] VITALS: BP 109/86
== END 2022-10-26 17:15 | disposition home or self-care (01) | DRG 194 ==
LOC: ER 08:12 → TELE 13:14 → TELE-WESTW 10-26 02:24
PROVIDERS: ADMIT Internal Medicine; ATTEND Internal Medicine
PROC: 0W9B3ZZ Drainage of Left Pleural Cavity, Percutaneous Approach (ICD-10-PCS; principal; 2022-10-26)
DX: I13.0 Hypertensive heart and chronic kidney disease with heart failure and stage 1 through stage 4 chronic kidney disease, or unspecified chronic kidney disease (principal); J90 Pleural effusion, not elsewhere classified; I42.0 Dilated cardiomyopathy; I50.23 Acute on chronic systolic (congestive) heart failure; K21.9 Gastro-esophageal reflux disease without esophagitis; N18.9 Chronic kidney disease, unspecified; Z82.49 Family history of ischemic heart disease and other diseases of the circulatory system; Z91.199 Patient's noncompliance with other medical treatment and regimen due to unspecified reason
CPT/HCPCS: 36415; 71045; 76604; 76942; 80053; 81001; 83880; 83986; 84484; 85025; 85610; 85730; 87070; 87081; 87205; 89051; 93306; G0378

== ENCOUNTER → 2022-11-19 | Emergency (ER) | payer MEDICAID | END | disposition left against medical advice (07) | LOC: ER 14:15 | DX: R10.9 Unspecified abdominal pain (principal); Z53.21 Procedure and treatment not carried out due to patient leaving prior to being seen by health care provider ==

== ENCOUNTER 2022-11-20 08:38 | Emergency (ER) | payer MEDICAID ==
[~2022-11-20] VITALS: Ht 172.7 cm; Wt 78.7 kg
[2022-11-20 09:32] LABS: Basophils # (auto) 0.1 10 ^3/uL (0-0.2); Eosinophils # (auto) 0.3 10 ^3/uL (0-0.8); Lymphocytes # (auto) 2.4 10 ^3/uL (0.4-5.4); Mean Corpuscular Hgb Conc. 32.6 g/dL (32.0-36.0); Monocytes # (auto) 0.6 10 ^3/uL (0-1.3)
[2022-11-20 09:37] LABS: Basophils % (auto) 0.9 % (0.0-2.0); Eosinophils % (auto) 3.7 % (0.0-7.0); Hemoglobin 18.4 g/dL (13.5-17.5); Lymphocytes % (auto) 35.4 % (10.0-50.0); Mean Corpuscular Hemoglobin 32.6 pg (28.0-32.0); Mean Corpuscular Volume 99.9 fL (80.0-100.0); Monocytes % (auto) 8.7 % (0.0-12.0); Neutrophils # (auto) 3.5 10 ^3/uL (1.6-8.6); Neutrophils % (auto) 51.3 % (37.0-80.0); Nucleated Red Blood Cells % 0.3 %; Red Blood Cells 5.66 10^6/uL (4.5-5.90); Red Cell Distribution Width 14.3 % (11.8-14.3); White Blood Cell 6.9 10^3/uL (4.4-10.8)
[2022-11-20 09:38] LABS: Hematocrit 56.6 % (41.0-53.0)
[2022-11-20 10:12] LABS: Albumin 3.6 g/dL (3.4-5.0); Potassium 3.9 mmol/L (3.5-5.1)
[2022-11-20 10:24] LABS: BUN/Creatinine Ratio 20.3 (10.0-20.0); Bilirubin, Total 1.6 mg/dL (0.2-1.0); Total Protein 7.2 g/dL (6.4-8.2)
[2022-11-20 10:44] LABS: Urine Bacteria NONE SEEN /hpf (None Seen); Urine Blood Negative /uL (Negative); Urine Hyaline Cast FEW /lpf (0 - 2); Urine Mucus FEW (None Seen); Urine Specific Gravity 1.024 (1.001-1.035); Urine WBC 1 /hpf (0 - 3)
[2022-11-20 13:06] VITALS: BP 104/63
== END 2022-11-20 13:09 | disposition home or self-care (01) ==
LOC: ER 08:38
DX: N17.9 Acute kidney failure, unspecified (principal); J90 Pleural effusion, not elsewhere classified; R18.8 Other ascites; K21.9 Gastro-esophageal reflux disease without esophagitis; I11.0 Hypertensive heart disease with heart failure; I50.9 Heart failure, unspecified; Z87.891 Personal history of nicotine dependence
CPT/HCPCS: 36415; 76705; 80053; 81001; 85025

== ENCOUNTER 2022-11-22 02:56 | Inpatient (IN) | payer MEDICAID, OTHER ==
[~2022-11-22] VITALS: Ht 172.7 cm; Wt 79.5 kg
[2022-11-22 03:54] LABS: Basophils # (auto) 0.1 10 ^3/uL (0-0.2); Eosinophils # (auto) 0.2 10 ^3/uL (0-0.8); Red Blood Cells 5.76 10^6/uL (4.5-5.90); White Blood Cell 7.4 10^3/uL (4.4-10.8)
[2022-11-22 03:56] LABS: Basophils % (auto) 1.3 % (0.0-2.0); Eosinophils % (auto) 2.7 % (0.0-7.0); Hemoglobin 18.7 g/dL (13.5-17.5); Lymphocytes # (auto) 2.7 10 ^3/uL (0.4-5.4); Lymphocytes % (auto) 36.6 % (10.0-50.0); Mean Corpuscular Hemoglobin 32.5 pg (28.0-32.0); Mean Corpuscular Volume 98.5 fL (80.0-100.0); Monocytes # (auto) 0.4 10 ^3/uL (0-1.3); Monocytes % (auto) 5.3 % (0.0-12.0); Neutrophils % (auto) 54.1 % (37.0-80.0); Nucleated Red Blood Cells % 0.2 %; Red Cell Distribution Width 14.5 % (11.8-14.3)
[2022-11-22 04:10] LABS: Albumin 3.2 g/dL (3.4-5.0); Calcium 8.8 mg/dL (8.5-10.1); Potassium 3.9 mmol/L (3.5-5.1)
[2022-11-22 04:12] LABS: Bilirubin, Total 1.7 mg/dL (0.2-1.0)
[2022-11-22 04:29] LABS: Hematocrit 56.8 % (41.0-53.0)
[2022-11-22 05:03] LABS: Urine Bacteria NONE SEEN /hpf (None Seen); Urine Blood Negative /uL (Negative); Urine Hyaline Cast MOD /lpf (0 - 2); Urine Mucus FEW (None Seen); Urine Specific Gravity 1.017 (1.001-1.035); Urine WBC 1 /hpf (0 - 3)
[2022-11-22] MEDS ORDERED: MORPHINE SULFATE 4 MG/ML SYR/VIAL IV ONE (07:30)
[2022-11-22] MEDS ORDERED: ONDANSETRON HCL 4 MG/2 ML VIAL IV ONE (07:30)
[2022-11-22 07:59] LABS: INR 1.72 (0.9-1.15); Partial Thromboplastin Time 34.6 sec (24.6-33.4)
[2022-11-22] MEDS ORDERED: FUROSEMIDE 40 MG/4 ML VIAL IV ONE (08:45)
[2022-11-22] MEDS ORDERED: ACETAMINOPHEN 325 MG TAB PO PRN (18:00)
[2022-11-22] MEDS ORDERED: HYDROcodone-ACET 5/325MG TAB PO PRN (18:00)
[2022-11-22] MEDS ORDERED: ONDANSETRON HCL 4 MG/2 ML VIAL IV PRN (18:00)
[2022-11-22] MEDS ORDERED: NITROGLYCERIN 0.4 MG SL TAB SL PRN (18:00)
[2022-11-22] MEDS ORDERED: MORPHINE SULFATE INJ 2 MG/ml SYRG IV PRN ×2 (18:00)
[2022-11-22] MEDS: FUROSEMIDE 40 MG/4 ML VIAL IV SCH (20:59)
[2022-11-22] MEDS: CARVEDILOL 3.125 MG TAB PO SCH (22:00)
[2022-11-23] MEDS: FUROSEMIDE 40 MG/4 ML VIAL IV SCH ×2 (06:13→18:00)
[2022-11-23 06:58] LABS: Basophils # (auto) 0 10 ^3/uL (0-0.2); Basophils % (auto) 0.7 % (0.0-2.0); Eosinophils # (auto) 0.2 10 ^3/uL (0-0.8); Eosinophils % (auto) 3.5 % (0.0-7.0); Hematocrit 53.1 % (41.0-53.0); Hemoglobin 17.5 g/dL (13.5-17.5); Lymphocytes # (auto) 1.8 10 ^3/uL (0.4-5.4); Lymphocytes % (auto) 27.8 % (10.0-50.0); Mean Corpuscular Hemoglobin 32.4 pg (28.0-32.0); Mean Corpuscular Volume 98.1 fL (80.0-100.0); Monocytes # (auto) 0.5 10 ^3/uL (0-1.3); Nucleated Red Blood Cells % 0.2 %; Red Blood Cells 5.42 10^6/uL (4.5-5.90); Red Cell Distribution Width 14.5 % (11.8-14.3); White Blood Cell 6.6 10^3/uL (4.4-10.8)
[2022-11-23 07:52] LABS: Potassium 4.2 mmol/L (3.5-5.1)
[2022-11-23 08:02] LABS: Albumin 3.1 g/dL (3.4-5.0); BUN/Creatinine Ratio 18.2 (10.0-20.0); Bilirubin, Total 2.1 mg/dL (0.2-1.0); Calcium 8.6 mg/dL (8.5-10.1); Total Protein 6.1 g/dL (6.4-8.2)
[2022-11-23] MEDS ORDERED: SACUBITRIL-VALSARTAN 24mg/26mg TAB PO SCH (10:00)
[2022-11-23] MEDS ORDERED: TAMSULOSIN HYDROCHLORIDE 0.4 MG CAP PO SCH (10:00)
[2022-11-23] MEDS ORDERED: PANTOPRAZOLE 40 MG TAB PO SCH (10:00)
[2022-11-23 12:10] VITALS: BP 101/65
[2022-11-23] MEDS: CARVEDILOL 3.125 MG TAB PO SCH (12:10)
[2022-11-23 14:00] VITALS: BP 90/71
[2022-11-23 17:00] VITALS: BP 101/76
[2022-11-23 17:46] VITALS: BP 101/76
== END 2022-11-23 19:02 | disposition home or self-care (01) | DRG 133 ==
LOC: ER 02:56 → TELE 18:07 → TELE-CENTR 11-23 12:16
PROVIDERS: ADMIT Internal Medicine; ATTEND Internal Medicine
PROC: 0W993ZZ Drainage of Right Pleural Cavity, Percutaneous Approach (ICD-10-PCS; principal; 2022-11-23)
DX: J96.21 Acute and chronic respiratory failure with hypoxia (principal); I50.23 Acute on chronic systolic (congestive) heart failure; I42.9 Cardiomyopathy, unspecified; J90 Pleural effusion, not elsewhere classified; K21.9 Gastro-esophageal reflux disease without esophagitis; I11.0 Hypertensive heart disease with heart failure; Z82.49 Family history of ischemic heart disease and other diseases of the circulatory system; Z91.148 Patient's other noncompliance with medication regimen for other reason
CPT/HCPCS: 36415; 71045; 71046; 74176; 76604; 76942; 80053; 81001; 83690; 83880; 83986; 84484; 85025; 85610; 85730; 87070; 87205; 89051; 93005; G0378

== ENCOUNTER 2022-12-12 10:08 | Inpatient (IN) | payer MEDICAID ==
[~2022-12-12] VITALS: Ht 172.7 cm; Wt 74.8 kg
[~2022-12-12 10:08] MED LIST changes: -TAM04C PO; +TAMS-35 PO
[2022-12-12 11:33] LABS: INR 1.73 (0.9-1.15); Partial Thromboplastin Time 32.2 sec (24.6-33.4)
[2022-12-12 11:42] LABS: Albumin 3.6 g/dL (3.4-5.0); Basophils # (auto) 0.1 10 ^3/uL (0-0.2); Basophils % (auto) 1.2 % (0.0-2.0); Calcium 9.3 mg/dL (8.5-10.1); Eosinophils # (auto) 0.2 10 ^3/uL (0-0.8); Eosinophils % (auto) 2.7 % (0.0-7.0); Hemoglobin 19.1 g/dL (13.5-17.5); Lymphocytes # (auto) 2.1 10 ^3/uL (0.4-5.4); Monocytes # (auto) 0.4 10 ^3/uL (0-1.3); Neutrophils % (auto) 50.7 % (37.0-80.0); Potassium 4.9 mmol/L (3.5-5.1)
[2022-12-12 11:43] LABS: Lactic Acid w/Reflex 2.2 mmol/L (0.4-2.0)
[2022-12-12 11:45] LABS: BUN/Creatinine Ratio 17.3 (10.0-20.0); Bilirubin, Total 2.7 mg/dL (0.2-1.0); Lymphocytes % (auto) 37.4 % (10.0-50.0); Mean Corpuscular Hemoglobin 31.2 pg (28.0-32.0); Mean Corpuscular Volume 97.5 fL (80.0-100.0); Neutrophils # (auto) 2.8 10 ^3/uL (1.6-8.6); Nucleated Red Blood Cells % 0.5 %; Red Blood Cells 6.13 10^6/uL (4.5-5.90); Red Cell Distribution Width 15.5 % (11.8-14.3); Total Protein 6.8 g/dL (6.4-8.2); White Blood Cell 5.6 10^3/uL (4.4-10.8)
[2022-12-12 12:10] LABS: Hematocrit 59.8 % (41.0-53.0)
[2022-12-12] MEDS ORDERED: FUROSEMIDE 100 MG/10ML VIAL IV ONE (15:00)
[2022-12-12 15:44] LABS: Urine Bacteria FEW /hpf (None Seen); Urine Blood Negative /uL (Negative); Urine Hyaline Cast FEW /lpf (0 - 2); Urine Mucus FEW (None Seen); Urine Specific Gravity 1.023 (1.001-1.035); Urine WBC 2 /hpf (0 - 3)
[2022-12-12] MEDS ORDERED: MORPHINE SULFATE INJ 2 MG/ml SYRG IV PRN (18:15)
[2022-12-12] MEDS ORDERED: NITROGLYCERIN 0.4 MG SL TAB SL PRN (18:15)
[2022-12-12] MEDS: CARVEDILOL 3.125 MG TAB PO SCH (22:00)
[2022-12-13 05:17] LABS: Lymphocytes # (auto) 2.1 10 ^3/uL (0.4-5.4); Mean Corpuscular Hemoglobin 31.6 pg (28.0-32.0); Mean Corpuscular Hgb Conc. 32.9 g/dL (32.0-36.0); White Blood Cell 6.2 10^3/uL (4.4-10.8)
[2022-12-13 05:20] LABS: Basophils # (auto) 0.1 10 ^3/uL (0-0.2); Basophils % (auto) 1.5 % (0.0-2.0); Eosinophils # (auto) 0.1 10 ^3/uL (0-0.8); Eosinophils % (auto) 2.4 % (0.0-7.0); Lymphocytes % (auto) 34.6 % (10.0-50.0); Mean Corpuscular Volume 96.1 fL (80.0-100.0); Monocytes # (auto) 0.4 10 ^3/uL (0-1.3); Monocytes % (auto) 7.3 % (0.0-12.0); Neutrophils # (auto) 3.3 10 ^3/uL (1.6-8.6); Neutrophils % (auto) 54.2 % (37.0-80.0); Nucleated Red Blood Cells % 0.5 %; Red Cell Distribution Width 15.7 % (11.8-14.3)
[2022-12-13 05:37] LABS: Calcium 9.5 mg/dL (8.5-10.1); Potassium 4.7 mmol/L (3.5-5.1)
[2022-12-13 05:42] LABS: Albumin 3.8 g/dL (3.4-5.0); BUN/Creatinine Ratio 19.2 (10.0-20.0); Bilirubin, Total 2.8 mg/dL (0.2-1.0); Total Protein 7.3 g/dL (6.4-8.2)
[2022-12-13 06:01] LABS: Hematocrit 57.7 % (41.0-53.0)
[2022-12-13] MEDS ORDERED: SACUBITRIL-VALSARTAN 24mg/26mg TAB PO SCH (10:00)
[2022-12-13] MEDS ORDERED: TAMSULOSIN HYDROCHLORIDE 0.4 MG CAP PO SCH (10:00)
[2022-12-13] MEDS ORDERED: FUROSEMIDE 40 MG/4 ML VIAL IV SCH (10:00)
[2022-12-13] MEDS ORDERED: POTASSIUM CHL 10 Meq TABLET PO SCH (10:00)
[2022-12-13] MEDS ORDERED: PANTOPRAZOLE 40 MG TAB PO SCH (10:00)
[2022-12-13] MEDS: CARVEDILOL 3.125 MG TAB PO SCH (11:41)
[2022-12-13 14:00] VITALS: BP 93/69
[2022-12-13] MEDS ORDERED: FURO1TAB33 PO (16:14)
== END 2022-12-13 16:33 | disposition home or self-care (01) | DRG 194 ==
LOC: ER 10:08 → TELE 18:42
PROVIDERS: ADMIT Nurse Practitioner Family; ATTEND Internal Medicine
PROC: 0W993ZZ Drainage of Right Pleural Cavity, Percutaneous Approach (ICD-10-PCS; principal; 2022-12-13)
DX: I11.0 Hypertensive heart disease with heart failure (principal); D69.6 Thrombocytopenia, unspecified; E86.0 Dehydration; I42.9 Cardiomyopathy, unspecified; I50.23 Acute on chronic systolic (congestive) heart failure; K21.9 Gastro-esophageal reflux disease without esophagitis; N40.0 Benign prostatic hyperplasia without lower urinary tract symptoms; I08.1 Rheumatic disorders of both mitral and tricuspid valves; Z82.49 Family history of ischemic heart disease and other diseases of the circulatory system
CPT/HCPCS: 36415; 71045; 76705; 76942; 80053; 81001; 83605; 83615; 83880; 83986; 84484; 85025; 85610; 85730; 87070; 87205; 89051; 93005; 96374; G0378

== ENCOUNTER 2023-06-06 12:36 | Emergency (ER) | payer MEDICAID ==
[~2023-06-06] VITALS: Ht 170.2 cm; Wt 70.7 kg
[2023-06-06 13:06] VITALS: BP 110/74; PULSE 99
[2023-06-06 13:11] VITALS: RESP 20; O2SAT 96
[2023-06-06] MEDS ORDERED: AZIT1POW PO (13:28)
== END 2023-06-06 15:22 | disposition home or self-care (01) ==
LOC: ER 12:36
DX: J20.9 Acute bronchitis, unspecified (principal); R07.89 Other chest pain; I11.0 Hypertensive heart disease with heart failure; I50.9 Heart failure, unspecified; K21.9 Gastro-esophageal reflux disease without esophagitis; Z87.891 Personal history of nicotine dependence
CPT/HCPCS: 71046; 93005

== ENCOUNTER 2024-03-16 03:01 | Emergency (ER) | payer MEDICAID ==
[~2024-03-16] VITALS: Ht 172.7 cm; Wt 86.0 kg
[~2024-03-16 03:01] MED LIST changes: +AZIT1POW PO; +POTA-36 PO; -POTA10TA51 PO
[2024-03-16 05:09] VITALS: BP 113/76; PULSE 83; RESP 22; O2SAT 98
== END 2024-03-16 05:25 ==
LOC: ER 03:01
DX: T14.90XA Injury, unspecified, initial encounter (principal); I11.0 Hypertensive heart disease with heart failure; I50.89 Other heart failure; K21.9 Gastro-esophageal reflux disease without esophagitis; Z79.899 Other long term (current) drug therapy; X50.1XXA Overexertion from prolonged static or awkward postures, initial encounter; Y93.89 Activity, other specified; Y92.89 Other specified places as the place of occurrence of the external cause; Y99.8 Other external cause status
CPT/HCPCS: 73110